=== PATIENT | female | born 1970 | race Asian ===

== ENCOUNTER 2019-12-15 15:30 | Outpatient (RCR) | payer OTHER, SELFPAY ==
[2019-10-13 09:22] VITALS: BMI 23.0
--- NOTE | 2019-11-19 11:42 | HP.PTEVAL_ITS ---
Patient's Visit Information MARQUEZ QUIROZ is a 49 year old F referred to Physical Therapy by Dr. Barrie Mohamud DO with a diagnosis of Right Adehsive Capsulitis. Date of Evaluation: 11/19/19 Physical Therapist: Carmela Sabillon DPT - Visit Plan Frequency: 3x /Week Duration: 3 Weeks Plan: Focus on right shoulder ROM- 15 min of passive ROM with joint moblization- then AAROM, AROM and strength with pain mgtm as needed - Subjective Right shoulder pain- has been bothering her since July- no specific injury. Pain is located in the AC joint and radiates the elbow. She had a cortisone injection and the pain is now mild. Worst: 3/10 Best: /10 agg: movement, lifting Eases: keeping it close to her side- foam roller for her back. Describes the pain as sharp- x-ray but no MRI. No N/T. Sleep is disturbed- side sleeper. Right hand dominate. No STRAUSS, neck pain, dizziness. Feels that her right palm is hotter than it was prior to the soreness. 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 PMHx: none Meds: none - Objective Posture: FH, RS- guarding of the right UE. Palpatoin: not tender to touch. ROM: Cervical: WNL Elbow/wrist/hand: WNL Shoulder AROM: flexion: 80 degrees, abd: 55 degrees, IR: greater troch, ER: 30 degrees. PROM: flexion: 110 degrees, abd: 75 degrees, IR: 20 degrees, ER: 30 degrees. Strength: Alterations Tailor: Left: 45-60 Right: 40-45 Wrist: 5/5, Elbow: 4+/5 Shoulder Isometric at neutral: 4/5 all with pain. Special Test: Joint integrity: firm end feels - Goals Goal 1:: Patient will be I with HEP and progression Goal Time Frame: 4-6 Weeks Goal 2:: Patient will demo full AROM Of the right shoulder Goal Time Frame: 4-6 Weeks Goal 3:: Patient will report 0/10 pain for 1 week Goal Time Frame: 4-6 Weeks Goal 4:: Patient will lift 3 cones to [place] shelf for 2 minutes Goal Time Frame: 4-6 Weeks Goal 5:: Patient will maintain proper posture t/o tx session to demo increased scap s/s. Goal Time Frame: 4-6 Weeks - Rehabilitation Potential Physical Therapy Diagnosis: Patient presents with hypomobility- she has decreased ROM, strength and muscular endurannce leading to poor posture and increased pain with ADL's. Rehabilitation Potential: Fair - Anticipated Interventions Patient/Client Instruction: Educate patient on: Benefits of Fitness Program Therapeutic Exercise to Include: Strength training, Endurance training, Body mechanics, Postural training, Flexibilty training, Gait and locomotor training, Passive ROM, Active ROM, Scapular Strength/Stabilization Manual Therapy Techniques to Include: Passive ROM, Functional dry needling, Soft tissue mobilization For the Purpose of:: To improve ability to perform ADL's TENS: Yes Cryotherapy (ice pack, ice massage): Yes Thermo therapy (hot pack): Yes Ultrasound (thermal/non thermal): Yes Thank you for the opportunity to evaluate your patient. For Medicare and Medicare HMO plans, please review the plan of care and approve it. It will need to be FAXED BACK to us at [phone] for Medicare purposes. For Medicare only, by signing this I certify the plan of care. Please let me know if there are questions or concerns regarding this plan of care. Physician S ignature: Date:
--- NOTE | 2019-12-15 15:51 | HP.PTDCSUM_ITS ---
It has been my pleasure to treat MARQUEZ QUIROZ referred by Dr. Barrie oMhamud DO, with the diagnosis of Right Adehsive Capsulitis for a total of 8 visit(s). Discharge Date: Please see the following information for a summary of their discharge status. Subjective: Patient reports that she was good for 2 weeks then she had PT for 2 days in a row and since last wed she still has some pain in the shoulder. She is having more ROM but she still has a lot of pain. Does not have an apt to go see the MD. She reports the pain comes and goes- during the day it gets worse. Sleep is not disturbed due to the pain- the pain is more achy pain. R SH Pain Intensity (Out of 10): 3 % Improvement: 50 Objective/Function: Posture: FH, RS- guarding of the right UE. Palpatoin: not tender to touch. ROM: Cervical: WNL Elbow/wrist/hand: WNL Shoulder AROM: flexion: 110 degrees, abd: 75 degrees, IR: pocket, ER: 30 degrees. P Strength: Industrial Electrician Journeyman: Left: 45-60 Right: 40-45 Wrist: 5/5, Elbow: 4+/5 Shoulder Isometric at neutral: 4/5 all with pain. Special Test: Joint integrity: firm end feels Goal 1:: Patient will be I with HEP and progression Goal Progress: Progressing Goal 2:: Patient will demo full AROM Of the right shoulder Goal Progress: Progressing Goal 3:: Patient will report 0/10 pain for 1 week Goal Progress: Not Progressing Goal 4:: Patient will lift 3 cones to [place] shelf for 2 minutes Goal Progress: Progressing Goal 5:: Patient will maintain proper posture t/o tx session to demo increased scap s/s. Goal Progress: Progressing Plan: Discharge- return to MD for further evaluation. If there are questions or concerns regarding this patient's physical therapy, please feel free to call me at [phone]. Thank you for the referral of this patient. Sincerely, Carmela Sabillon DPT
== END 2019-12-15 19:00 | disposition home or self-care (01) ==
LOC: PT 15:30
PROVIDERS: Referring Provider Orthopaedic Surgery; Visit Provider Orthopaedic Surgery
DX: M75.01 Adhesive capsulitis of right shoulder (principal)
CPT/HCPCS: 97110; 97140; 97161; 97164